=== PATIENT | female | born 1975 ===

== ENCOUNTER → 2025-09-06 | Outpatient (REF) | payer SELFPAY ==
[2025-09-06 13:02] LABS: THYROID PEROXIDASE ANTIBODY < 28.0 U/ML (<60.0)
[2025-09-06 13:03] LABS: FREE T4 1.09 NG/DL (0.89-1.76)
[2025-09-06 13:06] LABS: THYROGLOBULIN ANTIBODY 24.0 U/ML (<60.0)
== END ==
LOC: M LAB REF 12:15
PROVIDERS: ATTEND Student in an Organized Health Care Education/Training Program
DX: E03.9 Hypothyroidism, unspecified (principal)